=== PATIENT | female | born 1985 | race Caucasian/White ===

== ENCOUNTER 2019-03-09 15:58 | Emergency (ER) | payer MEDICAID ==
[~2019-03-09] VITALS: Ht 165.1 cm; Wt 75.0 kg
[~2019-03-09 15:58] MED LIST: ZOFRAN ODT4 MG PO
[2019-03-09 16:32] LABS: URINE BILIRUBIN - DIPSTICK NEGATIVE (NEGATIVE); URINE BLOOD DIPSTICK TRACE-INTACT (NEGATIVE); URINE COLOR YELLOW; URINE GLUCOSE - DIPSTICK NEGATIVE (NEGATIVE); URINE KETONE NEGATIVE (NEGATIVE); URINE LEUK ESTERASE NEGATIVE (NEGATIVE); URINE NITRITE - DIPSTICK NEGATIVE (Negative); URINE PROTEIN - DIPSTICK TRACE mg/dL (NEG-TRACE); URINE SPECIFIC GRAVITY 1.025; URINE UROBILINOGEN - DIPSTICK 0.2 E.U./dL (0.2)
[2019-03-09 16:35] LABS: HEMATOCRIT 38.4 % (37.0-47.0); IMMATURE GRANULOCYTES 0.5 % (0.0-5.0); MEAN CELL VOLUME 89.5 fL CALC (80.0-100.0); MEAN CORPUSCULAR HGB 30.3 pG CALC (26.0-32.0); MEAN CORPUSCULAR HGB CONC 33.9 g/L CALC (32.0-36.0); NEUT# 8.81 thou/uL (2.00-7.15); RED BLOOD COUNT 4.29 mill/uL (4.20-5.60); RED CELL DISTRI WIDTH 13.1 % (11.5-15.5)
[2019-03-09 16:54] LABS: ANION GAP 16 (6-22 (CALC)); BUN 8 mg/dL (7-17); BUN/CREATININE RATIO 19 (12-20 (CALC)); CARBON DIOXIDE 21 mmol/l (22-30); CHLORIDE 104 mmol/l (95-108); CREATININE 0.4 mg/dL (0.5-1.0); GFR > 60 ML/MIN (>=60 (CALC)); GFR FOR AFR.AMER. > 60 ML/MIN (>=60 (CALC)); POTASSIUM 4.2 mmol/l (3.5-5.1); SODIUM 137 mmol/l (137-146)
[2019-03-09 17:50] LABS: BETA-HCG, QUANT(RESULT NUMBER) 68867 mIU/mL
[2019-03-09 18:52] VITALS: BP 109/59
== END 2019-03-09 18:52 | disposition home or self-care (01) ==
LOC: ED 15:58
PROVIDERS: Family Medicine
DX: O26.851 Spotting complicating pregnancy, first trimester (principal); O99.331 Smoking (tobacco) complicating pregnancy, first trimester; F17.200 Nicotine dependence, unspecified, uncomplicated; O26.893 Other specified pregnancy related conditions, third trimester; Z67.91 Unspecified blood type, Rh negative; Z3A.11 11 weeks gestation of pregnancy
CPT/HCPCS: J2790

== ENCOUNTER 2021-05-03 12:20 | Emergency (ER) | payer MEDICAID ==
[~2021-05-03] VITALS: Ht 165.1 cm; Wt 93.0 kg
[2021-05-03 13:06] LABS: URINE BILIRUBIN - DIPSTICK NEGATIVE (NEGATIVE); URINE BLOOD DIPSTICK LARGE (NEGATIVE); URINE COLOR YELLOW; URINE GLUCOSE - DIPSTICK NEGATIVE (NEGATIVE); URINE KETONE NEGATIVE (NEGATIVE); URINE PROTEIN - DIPSTICK 100 mg/dL (NEG-TRACE); URINE UROBILINOGEN - DIPSTICK 0.2 E.U./dL (0.2)
[2021-05-03 13:16] LABS: URINE LEUK ESTERASE LARGE (NEGATIVE); URINE NITRITE - DIPSTICK NEGATIVE (Negative)
[2021-05-03 13:18] LABS: URINE BACTERIA MODERATE hpf; URINE EPITHELIAL CELLS MANY EPI/hpf (0-FEW); URINE WBC 20-50 WBC/hpf (0-5)
[2021-05-03] MEDS ORDERED: KEFLEX500 MG PO (14:37)
[2021-05-03] MEDS ORDERED: TAM75CAP PO (14:37)
[2021-05-03 15:00] VITALS: BP 120/70
== END 2021-05-03 15:00 | disposition home or self-care (01) ==
LOC: ED 12:20
DX: N39.0 Urinary tract infection, site not specified (principal); J10.1 Influenza due to other identified influenza virus with other respiratory manifestations; F17.200 Nicotine dependence, unspecified, uncomplicated; B96.20 Unspecified Escherichia coli [E. coli] as the cause of diseases classified elsewhere; Z20.822 Contact with and (suspected) exposure to COVID-19

== ENCOUNTER 2022-12-30 09:03 | Emergency (ER) | payer OTHER ==
[~2022-12-30] VITALS: Ht 165.1 cm; Wt 85.4 kg
[~2022-12-30 09:03] MED LIST changes: +KEFLEX500 MG PO; +TAM75CAP PO
[2022-12-30] MEDS ORDERED: AMOX/K CLAV875 M1 PO (09:37)
[2022-12-30 09:39] VITALS: BP 135/91
[2022-12-30 09:45] VITALS: BP 131/93
[2022-12-30 10:00] VITALS: BP 117/84
[2022-12-30 10:12] VITALS: BP 117/84
== END 2022-12-30 10:21 | disposition home or self-care (01) | DRG 816 ==
LOC: ED 09:03
DX: R59.0 Localized enlarged lymph nodes (principal); F17.200 Nicotine dependence, unspecified, uncomplicated

== ENCOUNTER 2024-07-31 18:38 | Emergency (ER) | payer OTHER ==
[~2024-07-31] VITALS: Ht 162.6 cm; Wt 81.0 kg
[~2024-07-31 18:38] MED LIST changes: +AMOX/K CLAV875 M1 PO
[2024-07-31] MEDS ORDERED: HYDROcodone/Acetaminophen 1 COMBO TAB PO ONE (19:50)
[2024-07-31] MEDS ORDERED: LORTAB 5/3255 MG PO (20:07)
[2024-07-31 20:35] VITALS: BP 134/88
== END 2024-07-31 20:39 | disposition home or self-care (01) | DRG 159 ==
LOC: ED 18:38
DX: K02.9 Dental caries, unspecified (principal); F17.200 Nicotine dependence, unspecified, uncomplicated